=== PATIENT | male | born 2000 | race American Indian/Alaskan Native ===

== ENCOUNTER 2018-05-15 23:55 | Emergency (ER) | payer MEDICAID ==
[2018-05-15] MEDS ORDERED: Azithromycin 250 MG Tab PO ONE (23:56)
[2018-05-15 23:59] VITALS: BP 124/80
--- NOTE | 2018-05-16 00:12 | EDM.PDOC ---
ED HPI GENERAL MEDICAL PROBLEM - General Chief Complaint: Respiratory Problem Stated Complaint: cold symptoms, chest congestion Time Seen by Provider: 05/16/18 00:05 Source of Information: Reports: Patient History Limitations: Reports: No Limitations - History of Present Illness INITIAL COMMENTS - FREE TEXT/NARRATIVE: Patient presents to ER with a 2 day history of cold symptoms. States mother has bronchitis and was worried was getting same. Has a young child at home and didn't want them to get sick. States has sinus pressure, mild sore throat. Feels ear pressure. "when lie down, feel like my head will blow up". He denies seeking any medical care at [facility] because "didn't want to wait around for hours to be seen so thought would come here and be checked out". No fever. No wheezing. States chest feels very tight in the am but improves as they day wears on. No shortness of breath. Onset: Today Duration: Day(s): Location: Reports: Head, Chest Quality: Reports: Burning Severity: Moderate Improves with: Reports: Rest Associated Symptoms: Reports: Cough, Headaches. Denies: Chest Pain, Fever/ Chills, Loss of Appetite, Nausea/Vomiting, Shortness of Breath Upper Chest Pain Score (Numeric/FACES): 4 - Related Data Allergies Allergy/AdvReac Type Severity Reaction Status Date / Time amoxicillin [Amoxicillin] Allergy Rash Verified 05/15/18 23:59 Home Meds: Home Meds Ibuprofen 600 mg PO Q6H PRN 01/02/14 [History] Past Medical History - Past Health History Medical/Surgical History: Denies Medical/Surgical History - Past Surgical History HEENT Surgical History: Reports: Oral Surgery Social & Family History - Family History Family Medical History: Noncontributory - Tobacco Use Smoking Status *Q: Current Every Day Smoker Years of Tobacco use: 2 Packs/Tins Daily: 1 - Caffeine Use Caffeine Use: Reports: None - Recreational Drug Use Recreational Drug Use: No ED ROS GENERAL - Review of Systems Review Of Systems: See Below Constitutional: Reports: Chills, Malaise, Weakness. Denies: Fever, Decreased Appetite HEENT: Reports: Rhinitis, Sinus Problem. Denies: Ear Pain, Throat Pain Respiratory: Reports: Cough. Denies: Shortness of Breath, Wheezing Cardiovascular: Denies: Chest Pain, Edema, Lightheadedness Endocrine: Denies: Fatigue GI/Abdominal: Denies: Abdominal Pain, Nausea, Vomiting : Reports: No Symptoms Musculoskeletal: Reports: No Symptoms Skin: Reports: No Symptoms Neurological: Reports: No Symptoms ED EXAM, GENERAL - Physical Exam Exam: See Below Exam Limited By: No Limitations General Appearance: Alert, WD/WN, No Apparent Distress Ears: Normal External Exam, Normal TMs Nose: Nasal Drainage (mucopurulent rhinorrhea noted. Maxillary sinus pressure with palpation.) Throat/Mouth: Normal Inspection, Normal Oropharynx Head: Normocephalic Neck: Normal Inspection, Supple, Non-Tender Respiratory/Chest: No Respiratory Distress, Lungs Clear, Normal Breath Sounds Cardiovascular: Regular Rate, Rhythm GI/Abdominal: Normal Bowel Sounds, Soft, Non-Tender Extremities: Normal Inspection, Normal Capillary Refill Neurological: Alert, Oriented Skin Exam: Warm, Dry Course - Vital Signs Last Recorded V/S: Last Vital Signs Temp 97.8 F 05/15/18 23:56 Pulse 103 H 05/15/18 23:56 Resp 20 05/15/18 23:56 BP 124/80 05/15/18 23:56 Pulse Ox 96 05/15/18 23:56 Departure - Departure Time of Disposition: 00:14 Disposition: Home, Self-Care 01 Condition: Good Clinical Impression: Sinusitis Qualifiers: Sinusitis location: maxillary Chronicity: acute Recurrence: non-recurrent Qualified Code(s): J01.00 - Acute maxillary sinusitis, unspecified - Discharge Information *PRESCRIPTION DRUG MONITORING PROGRAM REVIEWED*: No *COPY OF PRESCRIPTION DRUG MONITORING REPORT IN PATIENT [place]: No Additional Instructions: 1. Push fluids 2. Tylenol or ibuprofen for fever or discomfort 3. Zpack as directed 4. Follow up with [facility] for ongoing concerns.
[2018-05-16] MEDS ORDERED: Take Home: Azithromycin 250 MG, 2 Tab Pack PO ONE (00:15)
== END 2018-05-16 00:30 | disposition home or self-care (01) ==
LOC: CC.ED 23:55
DX: J01.00 Acute maxillary sinusitis, unspecified (principal); F17.210 Nicotine dependence, cigarettes, uncomplicated; Z88.1 Allergy status to other antibiotic agents
CPT/HCPCS: 99283; A9270-GY

== ENCOUNTER 2022-01-31 12:42 | Emergency (ER) | payer MEDICAID ==
[2022-01-31 12:45] VITALS: BP 130/61; PULSE 105
[2022-01-31] MEDS ORDERED: Nirmatrelvir/Ritonavir 300 MG/100 MG Dose Pack ONE (13:01)
[2022-01-31] MEDS: Ibuprofen 200 MG Tab PO ONE (13:03)
[2022-01-31] MEDS: Ondansetron 4 MG Tab.DIS PO ONE (13:04)
[2022-01-31] MEDS: Take Home: Ondansetron 4 MG Tab.DIS, 2 Tab Pack PO ONE (13:37)
== END 2022-01-31 13:43 | disposition home or self-care (01) ==
LOC: CC.ED 12:42
DX: U07.1 COVID-19 (principal); R11.2 Nausea with vomiting, unspecified; F17.210 Nicotine dependence, cigarettes, uncomplicated; Z88.0 Allergy status to penicillin
CPT/HCPCS: 87804; 99284; A9270-GY; U0002

== ENCOUNTER 2024-04-12 22:20 | Emergency (ER) | payer MEDICAID ==
[2024-04-12 22:33] VITALS: BP 111/84; PULSE 115
[2024-04-12 22:53] LABS: BASOPHILS ABSOLUTE AUTO 0.07 10^3/uL (0.00-0.50); BASOPHILS PERCENT AUTO 0.6 % (0-1); EOSINOPHILS ABSOLUTE AUTO 0.06 10^3/uL (0.00-1.50); EOSINOPHILS PERCENT AUTO 0.6 % (0-6); HEMATOCRIT 48.7 % (42.0-52.0); HEMOGLOBIN 16.4 g/dL (14.0-18.0); IMMATURE GRAN ABSOLUTE AUTO 0.01 10^3/uL (0.00-0.49); IMMATURE GRAN PERCENT AUTO 0.1 % (0.0-4.9); LYMPHOCYTES PERCENT AUTO 20.2 % (24-44); MEAN CORPUSCULAR HEMOGLOBIN 29.4 pg (27.0-32.0); MEAN CORPUSCULAR HGB CONC 33.7 g/dL (32.0-36.0); MEAN CORPUSCULAR VOLUME 87.4 fL (83.0-97.0); MONOCYTES ABSOLUTE AUTO 0.71 10^3/uL (0.00-1.50); MONOCYTES PERCENT AUTO 6.5 % (0-10); NEUTROPHILS ABSOLUTE AUTO 7.82 x10^3/uL (1.80-8.00); PLATELET COUNT,PLT 224 10^3/uL (150-400); RED BLOOD CELL COUNT 5.57 x10^6/uL (4.50-6.00); WHITE BLOOD CELL COUNT,WBC 10.9 10^3/uL (4.0-11.0)
[2024-04-12] MEDS: Sodium Chloride 0.9% 1,000 ML IV ONE (22:55)
[2024-04-12 22:57] LABS: APPEARANCE,URINE CLEAR (CLEAR); BILIRUBIN,URINE NEGATIVE (NEGATIVE); COLOR,URINE YELLOW (YELLOW); GLUCOSE,URINE NEGATIVE (NEGATIVE); KETONES,URINE NEGATIVE (NEGATIVE); LEUKOCYTE ESTERASE,URINE NEGATIVE (NEGATIVE); NITRITE,URINE NEGATIVE (NEGATIVE); OCCULT BLOOD,URINE NEGATIVE (NEGATIVE); PH,URINE 6.5 (4.5-8.0); PROTEIN,URINE NEGATIVE (NEGATIVE); UROBILINOGEN,URINE 0.2 EU/dL (0.2-1.0)
[2024-04-12 22:59] LABS: AMPHETAMINES,URINE NEGATIVE (NEGATIVE); BARBITURATES,URINE NEGATIVE (NEGATIVE); BENZODIAZEPINE,URINE NEGATIVE (NEGATIVE); MDMA (ECSTASY), URINE NEGATIVE (NEGATIVE); METHADONE,URINE NEGATIVE (NEGATIVE); METHAMPHETAMINES,URINE NEGATIVE (NEGATIVE); OPIATES,URINE NEGATIVE (NEGATIVE); OXYCODONE,URINE NEGATIVE (NEGATIVE); PHENCYCLIDINE,URINE NEGATIVE (NEGATIVE); TCA,URINE NEGATIVE (NEGATIVE)
[2024-04-12 23:16] LABS: ALANINE AMINOTRANSFERASE,ALT 12 U/L (12-78); ALBUMIN 4.3 g/dL (3.4-5.0); ALKALINE PHOSPHATASE 66 U/L (46-116); ASPARTATE AMNIOTRANSFERASE,AST 6 U/L (15-37); BILIRUBIN TOTAL 0.5 mg/dL (0.0-1.0); BLOOD UREA NITROGEN,BUN 7 mg/dL (7-18); CALCIUM 9.4 mg/dL (8.4-10.1); CARBON DIOXIDE,CO2 25 mmol/L (21-32); CHLORIDE,CL 106 mEq/L (98-106); EST CRCL DRUG DOSING (CG) 86.18 mL/min; ETHANOL BLOOD MEDICAL 160 mg/dL (0-3); GLUCOSE RANDOM 96 mg/dL (75-99); MAGNESIUM 2.1 mg/dL (1.8-2.4); POTASSIUM,K 3.3 mEq/L (3.5-5.0); PROTEIN TOTAL,TP 7.6 g/dL (6.4-8.2); SODIUM,NA 147 mEq/L (136-145)
[2024-04-12 23:32] LABS: ESTIMATED GFR 106 mL/min (>=60)
[2024-04-12 23:34] LABS: ACETAMINOPHEN < 2 ug/mL (10-30)
[2024-04-13] MEDS: Potassium Chloride 10 MEQ Tab.ER PO ONE (00:15)
== END 2024-04-13 00:30 | disposition left against medical advice (07) ==
LOC: CC.ED 22:20
DX: T51.8X2A Toxic effect of other alcohols, intentional self-harm, initial encounter (principal); Z86.16 Personal history of COVID-19; Z88.0 Allergy status to penicillin
CPT/HCPCS: 36415; 71045; 80053; 80143; 80179; 80305-QW; 80307; 81003; 83605; 83735; 84484; 85025; 93005; 99285; A9270-GY; J7030